=== PATIENT | male | born 1950 | race Caucasian/White ===

== ENCOUNTER → 2017-01-30 | Outpatient (CLI) | payer MEDICARE, OTHER | LOC: HEART 5 01-17 08:00 | DX: I20.8 Other forms of angina pectoris (principal); I25.5 Ischemic cardiomyopathy; R06.02 Shortness of breath | CPT/HCPCS: 78452; A9502 ==

== ENCOUNTER 2017-04-02 19:51 | Emergency (ER) | payer MEDICARE ==
[2017-04-02 22:31] LABS: HEMOGLOBIN 14.3 gm/dl (14.0-17.5); RED BLOOD COUNT 4.29 M/UL (4.20-5.50); WHITE BLOOD COUNT 6.7 K/UL (4.5-11.0)
[2017-04-02 23:03] LABS: BUN/CREATININE RATIO 13 (0-10)
== END 2017-04-03 02:28 | disposition home or self-care (01) ==
LOC: ER1 19:51
PROVIDERS: Family Medicine
DX: B35.3 Tinea pedis (principal); F10.10 Alcohol abuse, uncomplicated; R21 Rash and other nonspecific skin eruption
CPT/HCPCS: 36415; 71020; 80053; 80307; 81001; 82150; 83690; 85025; 93005; 99284; G0480

== ENCOUNTER 2021-01-25 13:04 | Inpatient (IN) | payer MEDICARE ==
[~2021-01-25] VITALS: Ht 172.7 cm; Wt 66.7 kg
[~2021-01-25 13:04] MED LIST: COREG6.25 MG PO; COZAAR 25MG TAB25 MG PO; FLOMAX 0.4 MG0.4 MG PO; FOLIC ACID 1 MG1 MG PO; GABAPENTIN800 MG PO; LIPITOR TAB 1010 MG PO; METOLAZONE2.5 MG PO; PANTOPRAZOLE SO40 MG PO; PLAVIX 75 MG TA75 MG PO
[2021-01-25 14:20] LABS: HEMOGLOBIN 11.7 gm/dl (14.0-17.5); RED BLOOD COUNT 3.7 M/UL (4.20-5.50); WHITE BLOOD COUNT 7.2 K/UL (4.5-11.0)
[2021-01-25 14:40] LABS: BUN/CREATININE RATIO 22 (0-10)
[2021-01-25] MEDS ORDERED: PROZAC10 MG PO (16:39)
[2021-01-25] MEDS ORDERED: K-DUR TAB 20 M20 MEQ PO (16:40)
[2021-01-25] MEDS ORDERED: VENTOLIN HFA 66.7 GM INH (17:23)
[2021-01-26 04:13] LABS: HEMOGLOBIN 11.3 gm/dl (14.0-17.5); RED BLOOD COUNT 3.58 M/UL (4.20-5.50); WHITE BLOOD COUNT 6.2 K/UL (4.5-11.0)
[2021-01-26 04:19] LABS: BUN/CREATININE RATIO 21 (0-10)
[2021-01-27 02:57] LABS: HEMOGLOBIN 11.6 gm/dl (14.0-17.5); RED BLOOD COUNT 3.62 M/UL (4.20-5.50); WHITE BLOOD COUNT 5.2 K/UL (4.5-11.0)
[2021-01-27 08:23] LABS: BUN/CREATININE RATIO 22 (0-10)
[2021-01-28 03:56] LABS: HEMOGLOBIN 12.1 gm/dl (14.0-17.5); RED BLOOD COUNT 3.86 M/UL (4.20-5.50)
[2021-01-28 04:00] LABS: WHITE BLOOD COUNT 7.6 K/UL (4.5-11.0)
[2021-01-28 04:13] LABS: BUN/CREATININE RATIO 21 (0-10)
[2021-01-29 03:53] LABS: HEMOGLOBIN 10.2 gm/dl (14.0-17.5); WHITE BLOOD COUNT 6.7 K/UL (4.5-11.0)
[2021-01-29 04:03] LABS: RED BLOOD COUNT 3.21 M/UL (4.20-5.50)
[2021-01-29 04:14] LABS: BUN/CREATININE RATIO 24 (0-10)
[2021-01-30 05:14] LABS: HEMOGLOBIN 11.4 gm/dl (14.0-17.5); WHITE BLOOD COUNT 6.3 K/UL (4.5-11.0)
[2021-01-30 05:17] LABS: RED BLOOD COUNT 3.63 M/UL (4.20-5.50)
[2021-01-30 05:38] LABS: BUN/CREATININE RATIO 16 (0-10)
[2021-01-31 03:58] LABS: HEMOGLOBIN 10.9 gm/dl (14.0-17.5); RED BLOOD COUNT 3.46 M/UL (4.20-5.50); WHITE BLOOD COUNT 5.1 K/UL (4.5-11.0)
[2021-01-31 04:29] LABS: BUN/CREATININE RATIO 18 (0-10)
[2021-02-01 03:13] LABS: HEMOGLOBIN 10.6 gm/dl (14.0-17.5); RED BLOOD COUNT 3.41 M/UL (4.20-5.50); WHITE BLOOD COUNT 4.9 K/UL (4.5-11.0)
[2021-02-01 03:28] LABS: BUN/CREATININE RATIO 18 (0-10)
[2021-02-01] MEDS ORDERED: ELIQUIS 2.5 MG2.5 MG PO (12:31)
[2021-02-01] MEDS ORDERED: DOCUSATE SODIU100 MG PO (12:31)
[2021-02-01] MEDS ORDERED: FUROSEMIDE20 MG PO (12:31)
[2021-02-01] MEDS ORDERED: SODIUM CHLORIDE1 G1 PO (12:31)
[2021-02-01] MEDS ORDERED: HYDROCODON-ACE1 EAC2 PO (12:31)
--- NOTE | 2021-02-01 15:06 | NUR ---
INSTRUCTED PATIENT ON NEW MEDS TO START AND MEDS TO STOP., HOME HEALTH TO ASSIST. FOLLOW UP APPOINTMENTS MADE. MEDS E-SCRIPTED TO PHARMACY. CONFIRMED PHARMACY WITH PATIENT. VERBALIZED UNDERSTANDING. PARISA LARIOS R.N.
== END 2021-02-01 16:24 | disposition home or self-care (01) | DRG 522 ==
LOC: ER1 13:04 → M/S 16:42 → CDU 16:42 → M/S 19:08
PROVIDERS: Family Medicine; Internal Medicine; Orthopaedic Surgery; Physician Assistant Medical; ADMIT Internal Medicine
PROC: 0SRB0JA Replacement of Left Hip Joint with Synthetic Substitute, Uncemented, Open Approach (ICD-10-PCS; principal; 2021-01-25)
DX: S72.002A Fracture of unspecified part of neck of left femur, initial encounter for closed fracture (principal); E22.2 Syndrome of inappropriate secretion of antidiuretic hormone; I50.22 Chronic systolic (congestive) heart failure; I11.0 Hypertensive heart disease with heart failure; D64.9 Anemia, unspecified; I25.10 Atherosclerotic heart disease of native coronary artery without angina pectoris; F17.200 Nicotine dependence, unspecified, uncomplicated; I48.0 Paroxysmal atrial fibrillation; N40.0 Benign prostatic hyperplasia without lower urinary tract symptoms; E78.5 Hyperlipidemia, unspecified; Z88.2 Allergy status to sulfonamides; I25.2 Old myocardial infarction; Z20.822 Contact with and (suspected) exposure to COVID-19
CPT/HCPCS: ECHO; 36415; 71045; 73502; 80048; 80053; 81001; 82436; 82533; 82550; 82553; 83735; 83880; 83930; 83935; 84133; 84300; 84439; 84443; 84484; 85025; 85027; 85610; 86850; 86900; 86901; 87081; 93005; 93306; 94664; 97110-GP-CQ; 97116-GP-CQ; 97161; 97166; 97530-GP-CQ; 97535; 99285; A6212; C1776; J0690; J1100; J1170; J1885; J2001; J2270; J2370; J2405; J2704; J2795; J3010; J3475; J7030; J7040; J7050; J7120; U0002

== ENCOUNTER 2021-02-09 09:47 | Emergency (ER) | payer MEDICARE ==
[~2021-02-09 09:47] MED LIST changes: +DOCUSATE SODIU100 MG PO; +ELIQUIS 2.5 MG2.5 MG PO; +FUROSEMIDE20 MG PO; +HYDROCODON-ACE1 EAC2 PO; +K-DUR TAB 20 M20 MEQ PO; +PROZAC10 MG PO; +SODIUM CHLORIDE1 G1 PO; +VENTOLIN HFA 66.7 GM INH
== END 2021-02-09 12:48 | disposition home or self-care (01) ==
LOC: ER1 09:47
DX: R60.0 Localized edema (principal); I10 Essential (primary) hypertension; I25.2 Old myocardial infarction; J44.9 Chronic obstructive pulmonary disease, unspecified; Z79.01 Long term (current) use of anticoagulants; F17.210 Nicotine dependence, cigarettes, uncomplicated; Z88.2 Allergy status to sulfonamides
CPT/HCPCS: 93971; 99283

== ENCOUNTER 2021-02-13 15:28 | Inpatient (IN) | payer MEDICARE ==
[~2021-02-13] VITALS: Ht 172.7 cm; Wt 55.8 kg
[2021-02-13 16:17] LABS: HEMOGLOBIN 10.5 gm/dl (14.0-17.5); RED BLOOD COUNT 3.38 M/UL (4.20-5.50)
[2021-02-13 16:43] LABS: BUN/CREATININE RATIO 9 (0-10)
[2021-02-14 13:31] LABS: BUN/CREATININE RATIO 8 (0-10)
[2021-02-15 03:05] LABS: HEMOGLOBIN 10.3 gm/dl (14.0-17.5); RED BLOOD COUNT 3.37 M/UL (4.20-5.50); WHITE BLOOD COUNT 5.6 K/UL (4.5-11.0)
[2021-02-15 03:27] LABS: BUN/CREATININE RATIO 16 (0-10)
[2021-02-16 03:24] LABS: HEMOGLOBIN 11.3 gm/dl (14.0-17.5); RED BLOOD COUNT 3.67 M/UL (4.20-5.50)
[2021-02-16 03:55] LABS: BUN/CREATININE RATIO 16 (0-10)
[2021-02-17] MEDS ORDERED: COMPACT COMPRE1 EACH MC (14:54)
[2021-02-17] MEDS ORDERED: IPRAT-ALBUT 0.5-3 ML NEB (14:54)
[2021-02-18 04:49] LABS: HEMOGLOBIN 12.3 gm/dl (14.0-17.5); RED BLOOD COUNT 3.99 M/UL (4.20-5.50)
[2021-02-18 04:50] LABS: WHITE BLOOD COUNT 3.3 K/UL (4.5-11.0)
[2021-02-18 05:15] LABS: BUN/CREATININE RATIO 24 (0-10)
[2021-02-18] MEDS ORDERED: PREDNISONE10 M1 PO (14:09)
[2021-02-18] MEDS ORDERED: BUMETANIDE1 MG PO (14:09)
[2021-02-19] MEDS ORDERED: LASIX20 MG PO (15:14)
== END 2021-02-19 17:01 | disposition home health service (06) | DRG 292 ==
LOC: ER1 15:28 → CDU 20:52 → M/S 20:52 → CCU 20:52 → M/S 02-14 17:36
PROVIDERS: Emergency Medicine; Internal Medicine; Internal Medicine Infectious Disease; Physician Assistant; ADMIT Internal Medicine
DX: I11.0 Hypertensive heart disease with heart failure (principal); E87.1 Hypo-osmolality and hyponatremia; E44.0 Moderate protein-calorie malnutrition; I50.23 Acute on chronic systolic (congestive) heart failure; Z66 Do not resuscitate; J44.9 Chronic obstructive pulmonary disease, unspecified; F17.200 Nicotine dependence, unspecified, uncomplicated; I25.10 Atherosclerotic heart disease of native coronary artery without angina pectoris; I25.5 Ischemic cardiomyopathy; F10.10 Alcohol abuse, uncomplicated; N40.0 Benign prostatic hyperplasia without lower urinary tract symptoms; E78.5 Hyperlipidemia, unspecified; L89.322 Pressure ulcer of left buttock, stage 2; L89.312 Pressure ulcer of right buttock, stage 2; E87.6 Hypokalemia; E83.42 Hypomagnesemia; Z96.642 Presence of left artificial hip joint; Z20.822 Contact with and (suspected) exposure to COVID-19; D64.9 Anemia, unspecified; Z82.49 Family history of ischemic heart disease and other diseases of the circulatory system; Z95.810 Presence of automatic (implantable) cardiac defibrillator; Z68.23 Body mass index [BMI] 23.0-23.9, adult; Z85.118 Personal history of other malignant neoplasm of bronchus and lung
CPT/HCPCS: 36415; 71045; 80048; 80053; 82550; 82553; 83735; 83874; 83880; 84484; 85025; 85027; 85652; 86140; 87040; 87205; 93005; 93970; 94640; 94664; 94760; 96374; 96375; 97161; 99285; C9113; J1940; J1956; J2930; J3475; P9047; Q9967; U0002

== ENCOUNTER 2021-03-04 08:48 | Emergency (ER) | payer MEDICARE ==
[~2021-03-04 08:48] MED LIST changes: +BUMETANIDE1 MG PO; +COMPACT COMPRE1 EACH MC; +IPRAT-ALBUT 0.5-3 ML NEB; +LASIX20 MG PO; +PREDNISONE10 M1 PO
[2021-03-04 09:34] LABS: HEMOGLOBIN 10.5 gm/dl (14.0-17.5); RED BLOOD COUNT 3.46 M/UL (4.20-5.50); WHITE BLOOD COUNT 5.1 K/UL (4.5-11.0)
[2021-03-04 10:24] LABS: BUN/CREATININE RATIO 13 (0-10)
== END 2021-03-04 13:21 | disposition home or self-care (01) ==
LOC: ER1 08:48
PROVIDERS: Physician Assistant
DX: I11.0 Hypertensive heart disease with heart failure (principal); I50.9 Heart failure, unspecified; I48.91 Unspecified atrial fibrillation; I25.10 Atherosclerotic heart disease of native coronary artery without angina pectoris; I25.2 Old myocardial infarction; E78.5 Hyperlipidemia, unspecified; J44.9 Chronic obstructive pulmonary disease, unspecified; Z79.02 Long term (current) use of antithrombotics/antiplatelets; Z88.2 Allergy status to sulfonamides; F17.210 Nicotine dependence, cigarettes, uncomplicated
CPT/HCPCS: 71045; 80053; 82550; 82553; 83874; 83880; 84484; 85025; 93005; 96374; 99285; J1940

== ENCOUNTER 2021-03-29 20:59 | Inpatient (IN) | payer MEDICARE ==
[~2021-03-29] VITALS: Ht 172.7 cm; Wt 64.2 kg
[2021-03-29 21:27] LABS: HEMOGLOBIN 10.9 gm/dl (14.0-17.5); RED BLOOD COUNT 3.73 M/UL (4.20-5.50); WHITE BLOOD COUNT 12.9 K/UL (4.5-11.0)
[2021-03-30 06:49] LABS: RED BLOOD COUNT 3.76 M/UL (4.20-5.50); WHITE BLOOD COUNT 9.9 K/UL (4.5-11.0)
[2021-03-31 05:34] LABS: HEMOGLOBIN 10.6 gm/dl (14.0-17.5); RED BLOOD COUNT 3.64 M/UL (4.20-5.50)
[2021-03-31 06:00] LABS: BUN/CREATININE RATIO 16 (0-10)
[2021-04-01 05:58] LABS: HEMOGLOBIN 9.7 gm/dl (14.0-17.5); RED BLOOD COUNT 3.37 M/UL (4.20-5.50)
[2021-04-01 06:07] LABS: WHITE BLOOD COUNT 9.3 K/UL (4.5-11.0)
[2021-04-01 07:01] LABS: BUN/CREATININE RATIO 22 (0-10)
[2021-04-02 03:53] LABS: RED BLOOD COUNT 3.45 M/UL (4.20-5.50)
[2021-04-02 03:57] LABS: WHITE BLOOD COUNT 6.1 K/UL (4.5-11.0)
[2021-04-02 06:45] LABS: BUN/CREATININE RATIO 23 (0-10)
[2021-04-02] MEDS ORDERED: LEVOFLOXACIN500 MG PO (10:46)
[2021-04-02] MEDS ORDERED: LASIX20 MG PO (10:46)
[2021-04-02] MEDS ORDERED: PRAMIPEXOLE0.125 MG PO (11:00)
== END 2021-04-02 14:30 | disposition home health service (06) | DRG 871 ==
LOC: ER1 20:59 → CDU 03-30 00:51 → CCU 03-30 00:51 → M/S 03-31 16:23
PROVIDERS: Family Medicine; Internal Medicine Nephrology; Student in an Organized Health Care Education/Training Program; ADMIT Internal Medicine
PROC: 02HV33Z Insertion of Infusion Device into Superior Vena Cava, Percutaneous Approach (ICD-10-PCS; principal; 2021-03-30)
PROC: B548ZZA Ultrasonography of Superior Vena Cava, Guidance (ICD-10-PCS; 2021-03-30)
DX: A41.52 Sepsis due to Pseudomonas (principal); R65.21 Severe sepsis with septic shock; E87.2 Acidosis; E22.2 Syndrome of inappropriate secretion of antidiuretic hormone; N17.9 Acute kidney failure, unspecified; M62.82 Rhabdomyolysis; I50.22 Chronic systolic (congestive) heart failure; C34.90 Malignant neoplasm of unspecified part of unspecified bronchus or lung; E44.0 Moderate protein-calorie malnutrition; N12 Tubulo-interstitial nephritis, not specified as acute or chronic; I25.5 Ischemic cardiomyopathy; Z20.822 Contact with and (suspected) exposure to COVID-19; R00.0 Tachycardia, unspecified; N40.0 Benign prostatic hyperplasia without lower urinary tract symptoms; I25.10 Atherosclerotic heart disease of native coronary artery without angina pectoris; I11.0 Hypertensive heart disease with heart failure; G25.81 Restless legs syndrome; R59.1 Generalized enlarged lymph nodes; F17.210 Nicotine dependence, cigarettes, uncomplicated; E83.42 Hypomagnesemia; J44.9 Chronic obstructive pulmonary disease, unspecified; E87.6 Hypokalemia; I95.9 Hypotension, unspecified; D63.8 Anemia in other chronic diseases classified elsewhere; Z79.01 Long term (current) use of anticoagulants; Z79.899 Other long term (current) drug therapy; Z95.5 Presence of coronary angioplasty implant and graft; Z88.2 Allergy status to sulfonamides; Z95.810 Presence of automatic (implantable) cardiac defibrillator
CPT/HCPCS: 36415; 36556; 36600; 70450; 71045; 72125; 80048; 80053; 80202; 80307; 81001; 82436; 82550; 82553; 82803; 83605; 83735; 83880; 83930; 83935; 84100; 84132; 84133; 84295; 84300; 84439; 84443; 84484; 85025; 86140; 87040; 87077; 87081; 87086; 87186; 94640; 94664; 94760; 96365; 96366; 96375; 97110; 97116-GP-CQ; 97162; 97166; 97530-GP-CQ; 99285; A6212; C1751; C9113; G0480; J0692; J1250; J1650; J1720; J1940; J1956; J3370; J3475; J7030; J7040; J7070; U0002

== ENCOUNTER 2021-04-08 14:39 | Emergency (ER) | payer MEDICARE ==
[~2021-04-08 14:39] MED LIST changes: +LEVOFLOXACIN500 MG PO; +PRAMIPEXOLE0.125 MG PO
[2021-04-08 15:59] LABS: RED BLOOD COUNT 3.56 M/UL (4.20-5.50); WHITE BLOOD COUNT 6.3 K/UL (4.5-11.0)
[2021-04-08 16:30] LABS: BUN/CREATININE RATIO 14 (0-10)
== END 2021-04-08 18:16 | disposition home or self-care (01) ==
LOC: ER1 14:39
PROVIDERS: Emergency Medicine
DX: D64.9 Anemia, unspecified (principal); R59.0 Localized enlarged lymph nodes; I11.0 Hypertensive heart disease with heart failure; I50.9 Heart failure, unspecified; I25.10 Atherosclerotic heart disease of native coronary artery without angina pectoris; I42.9 Cardiomyopathy, unspecified; J44.9 Chronic obstructive pulmonary disease, unspecified; Z85.118 Personal history of other malignant neoplasm of bronchus and lung; Z86.79 Personal history of other diseases of the circulatory system; F17.200 Nicotine dependence, unspecified, uncomplicated; Z20.822 Contact with and (suspected) exposure to COVID-19
CPT/HCPCS: 71045; 80053; 81001; 82550; 82553; 83605; 83690; 83874; 83880; 84484; 85025; 85610; 85730; 87040; 93005; 96374; 99284; J2543; J7040; U0002

== ENCOUNTER 2021-04-13 11:25 | Inpatient (IN) | payer MEDICARE ==
[~2021-04-13] VITALS: Ht 172.7 cm; Wt 54.7 kg
[2021-04-13 12:33] LABS: HEMOGLOBIN 9.3 gm/dl (14.0-17.5); RED BLOOD COUNT 3.25 M/UL (4.20-5.50); WHITE BLOOD COUNT 7.1 K/UL (4.5-11.0)
[2021-04-13 13:16] LABS: BUN/CREATININE RATIO 22 (0-10)
[2021-04-13] MEDS ORDERED: FOLIC ACID 1 MG1 MG PO (16:35)
[2021-04-13] MEDS ORDERED: COREG 3.125M3.125 MG PO (16:35)
[2021-04-14 05:04] LABS: HEMOGLOBIN 10.5 gm/dl (14.0-17.5); WHITE BLOOD COUNT 7.2 K/UL (4.5-11.0)
[2021-04-14 05:05] LABS: RED BLOOD COUNT 3.7 M/UL (4.20-5.50)
[2021-04-14 05:37] LABS: BUN/CREATININE RATIO 14 (0-10)
[2021-04-14 15:15] LABS: BUN/CREATININE RATIO 12 (0-10)
[2021-04-15 05:02] LABS: HEMOGLOBIN 9.9 gm/dl (14.0-17.5); RED BLOOD COUNT 3.57 M/UL (4.20-5.50); WHITE BLOOD COUNT 6.5 K/UL (4.5-11.0)
[2021-04-15 05:44] LABS: BUN/CREATININE RATIO 10 (0-10)
[2021-04-15 19:12] LABS: BORDETELLA PARAPERTUSSIS Not Detected (Not Detectd); BORDETELLA PERTUSSIS Not Detected (Not Detectd); CHLAMYDIA PNEUMONIAE Not Detected (Not Detectd); CORONAVIRUS HKU1 Not Detected (Not Detectd); CORONAVIRUS NL63 Not Detected (Not Detectd); CORONAVIRUS OC43 Not Detected (Not Detectd); CORONOAVIRUS 229E Not Detected (Not Detectd); HUMAN METAPNEUMOVIRUS Not Detected (Not Detectd); HUMAN RHINOVIRUS/ENTEROVIRUS Not Detected (Not Detectd); INFLUENZA A Not Detected (Not Detectd); INFLUENZA B Not Detected (Not Detectd); MYCOPLASMA PNEUMONIAE Not Detected (Not Detectd); PARAINFLUENZA VIRUS 1 Not Detected (Not Detectd); PARAINFLUENZA VIRUS 2 Not Detected (Not Detectd); PARAINFLUENZA VIRUS 3 Not Detected (Not Detectd); PARAINFLUENZA VIRUS 4 Not Detected (Not Detectd); RESPIRATORY SYNCYTIAL VIRUS Not Detected (Not Detectd)
[2021-04-15 20:53] LABS: SARS-CoV-2 NOT DETECTED (Not Detectd)
[2021-04-16 05:00] LABS: BUN/CREATININE RATIO 12 (0-10)
[2021-04-16 21:03] LABS: BUN/CREATININE RATIO 19 (0-10)
[2021-04-17 03:14] LABS: BUN/CREATININE RATIO 19 (0-10)
[2021-04-18 02:32] LABS: BUN/CREATININE RATIO 20 (0-10)
[2021-04-19 02:43] LABS: BUN/CREATININE RATIO 22 (0-10)
[2021-04-20 04:28] LABS: RED BLOOD COUNT 4.42 M/UL (4.20-5.50); WHITE BLOOD COUNT 9.6 K/UL (4.5-11.0)
[2021-04-20 04:45] LABS: HEMOGLOBIN 12.3 gm/dl (14.0-17.5)
[2021-04-20 05:00] LABS: BUN/CREATININE RATIO 20 (0-10)
--- NOTE | 2021-04-20 21:38 | NUR ---
TELEMETRY CALLED TO REPORT PT BLOOD PRESSURE 74/42. ENTERED PT ROOM. PT WAS ASLEEP AND LAYING LOW IN THE BED. ADJUSTED PT POSITION AND RERAN BLOOD PRESSURE. B/P 69/56 ON RIGHT UPPER ARM. LEFT THE ROOM TO GET A FRESH BLOOD PRESSURE CUFF AND A MANUAL. CHANGED THE BLOOD PRESSURE CUFF TO THE UPPER LEFT ARM AND GOT 92/69 WITH A MAP OF 72. CAPILLARY BLOOD GLUCOSE 125. CALLED DR. DOLAN AND REPORTED THE FINDINGS. ORDERED TO DRAW LABS AND AN ABG, HOLD THE PM DOSE OF LOPRESSOR AND ANY PAIN MEDICATION THAT CAN LOWER BLOOD PRESSURE, MONITOR BLOOD PRESSURE CLOSELY.
[2021-04-20 22:27] LABS: BUN/CREATININE RATIO 24 (0-10)
[2021-04-21 03:07] LABS: HEMOGLOBIN 12.2 gm/dl (14.0-17.5); RED BLOOD COUNT 4.39 M/UL (4.20-5.50)
[2021-04-21 03:21] LABS: WHITE BLOOD COUNT 12.9 K/UL (4.5-11.0)
[2021-04-21 03:34] LABS: BUN/CREATININE RATIO 24 (0-10)
[2021-04-22 03:27] LABS: HEMOGLOBIN 11.9 gm/dl (14.0-17.5); RED BLOOD COUNT 4.25 M/UL (4.20-5.50); WHITE BLOOD COUNT 10.8 K/UL (4.5-11.0)
[2021-04-22 03:45] LABS: BUN/CREATININE RATIO 27 (0-10)
[2021-04-23 03:21] LABS: HEMOGLOBIN 11.4 gm/dl (14.0-17.5); RED BLOOD COUNT 4.13 M/UL (4.20-5.50); WHITE BLOOD COUNT 9.3 K/UL (4.5-11.0)
[2021-04-23 03:40] LABS: BUN/CREATININE RATIO 29 (0-10)
[2021-04-24 02:43] LABS: HEMOGLOBIN 11.6 gm/dl (14.0-17.5); RED BLOOD COUNT 4.2 M/UL (4.20-5.50); WHITE BLOOD COUNT 9.3 K/UL (4.5-11.0)
[2021-04-24 03:17] LABS: BUN/CREATININE RATIO 38 (0-10)
[2021-04-25 04:54] LABS: HEMOGLOBIN 11.7 gm/dl (14.0-17.5); RED BLOOD COUNT 4.18 M/UL (4.20-5.50); WHITE BLOOD COUNT 10.6 K/UL (4.5-11.0)
[2021-04-25 05:07] LABS: BUN/CREATININE RATIO 32 (0-10)
[2021-04-26 03:35] LABS: HEMOGLOBIN 11.3 gm/dl (14.0-17.5); RED BLOOD COUNT 4.04 M/UL (4.20-5.50); WHITE BLOOD COUNT 11.2 K/UL (4.5-11.0)
[2021-04-26 03:55] LABS: BUN/CREATININE RATIO 32 (0-10)
[2021-04-29] MEDS ORDERED: DIGOXIN125 MCG PO (13:26)
[2021-04-29] MEDS ORDERED: GABAPENTIN800 MG PO (13:26)
== END 2021-04-29 23:45 | DRG 823 ==
LOC: ER1 11:25 → CDU 15:46 → PROG CARE 17:25
PROVIDERS: Internal Medicine; Physician Assistant; ADMIT Family Medicine
PROC: 07BJ3ZX Excision of Left Inguinal Lymphatic, Percutaneous Approach, Diagnostic (ICD-10-PCS; principal; 2021-04-22)
DX: C77.4 Secondary and unspecified malignant neoplasm of inguinal and lower limb lymph nodes (principal); J96.21 Acute and chronic respiratory failure with hypoxia; R57.0 Cardiogenic shock; J18.9 Pneumonia, unspecified organism; I50.23 Acute on chronic systolic (congestive) heart failure; C34.90 Malignant neoplasm of unspecified part of unspecified bronchus or lung; R64 Cachexia; E22.2 Syndrome of inappropriate secretion of antidiuretic hormone; E87.2 Acidosis; J44.1 Chronic obstructive pulmonary disease with (acute) exacerbation; E44.0 Moderate protein-calorie malnutrition; J44.0 Chronic obstructive pulmonary disease with (acute) lower respiratory infection; I42.0 Dilated cardiomyopathy; Z20.822 Contact with and (suspected) exposure to COVID-19; Z51.5 Encounter for palliative care; Z66 Do not resuscitate; I11.0 Hypertensive heart disease with heart failure; E16.2 Hypoglycemia, unspecified; D63.8 Anemia in other chronic diseases classified elsewhere; I71.4 Abdominal aortic aneurysm, without rupture; E86.0 Dehydration; E83.51 Hypocalcemia; N30.90 Cystitis, unspecified without hematuria; E83.42 Hypomagnesemia; F17.210 Nicotine dependence, cigarettes, uncomplicated; E86.1 Hypovolemia; I25.10 Atherosclerotic heart disease of native coronary artery without angina pectoris; L89.322 Pressure ulcer of left buttock, stage 2; L89.312 Pressure ulcer of right buttock, stage 2; I25.5 Ischemic cardiomyopathy; E87.6 Hypokalemia; I95.9 Hypotension, unspecified; E27.8 Other specified disorders of adrenal gland; G25.81 Restless legs syndrome; E11.40 Type 2 diabetes mellitus with diabetic neuropathy, unspecified; Z96.642 Presence of left artificial hip joint; F10.10 Alcohol abuse, uncomplicated; N40.0 Benign prostatic hyperplasia without lower urinary tract symptoms; R53.81 Other malaise; Z79.899 Other long term (current) drug therapy; Z87.440 Personal history of urinary (tract) infections; Z95.810 Presence of automatic (implantable) cardiac defibrillator; Z88.2 Allergy status to sulfonamides; Z82.49 Family history of ischemic heart disease and other diseases of the circulatory system; Z95.5 Presence of coronary angioplasty implant and graft; I25.2 Old myocardial infarction; Z68.20 Body mass index [BMI] 20.0-20.9, adult; Z88.8 Allergy status to other drugs, medicaments and biological substances; Z91.14 Patient's other noncompliance with medication regimen; Z79.4 Long term (current) use of insulin
CPT/HCPCS: 0240U; 36415; 36600; 71045; 71260; 74019; 76942; 80048; 80053; 80162; 80202; 81001; 82140; 82310; 82533; 82550; 82553; 82803; 82962; 83605; 83615; 83735; 83874; 83880; 84100; 84153; 84484; 84550; 85025; 85027; 85610; 85730; 87040; 87081; 87086; 87633; 88341; 88342; 93005; 94640; 94660; 94664; 94760; 96374; 96375; 96376; 97110; 97110-GP-CQ; 97116-GP-CQ; 97162; 97166; 97530; 97530-GP-CQ; 99285; G0378; J0610; J0696; J1205; J1650; J1956; J2543; J2765; J2920; J2930; J3370; J3475; J7030; J7070; Q9967; U0002